=== PATIENT | female | born 1960 | race Two or more races ===

== ENCOUNTER 2024-05-02 10:59 | Outpatient (CLI) | payer OTHER | END 2024-05-02 11:11 | disposition home or self-care (01) | LOC: EDBD 10:59 → MRI 10:59 | DX: M25.561 Pain in right knee (principal) | CPT/HCPCS: 73721 ==

== ENCOUNTER 2024-05-04 07:20 | Outpatient (CLI) | payer OTHER | END 2024-05-04 07:21 | disposition home or self-care (01) | LOC: MRI 07:20 | DX: D18.03 Hemangioma of intra-abdominal structures (principal) | CPT/HCPCS: 74183; Q9965 ==

== ENCOUNTER 2024-08-10 13:20 | Outpatient (CLI) | payer OTHER | END 2024-08-10 13:33 | disposition home or self-care (01) | LOC: MAMO-SONO 13:20 | DX: N64.9 Disorder of breast, unspecified (principal); J20.9 Acute bronchitis, unspecified; R07.9 Chest pain, unspecified; E04.2 Nontoxic multinodular goiter ==

== ENCOUNTER 2024-09-06 08:12 | Outpatient (CLI) | payer OTHER | END 2024-09-06 08:14 | disposition home or self-care (01) | LOC: RAD 08:12 | PROVIDERS: ATTEND Orthopaedic Surgery | DX: R93.6 Abnormal findings on diagnostic imaging of limbs (principal); M25.561 Pain in right knee; M25.562 Pain in left knee ==

== ENCOUNTER 2024-11-15 07:12 | Outpatient (CLI) | payer OTHER | END 2024-11-15 07:15 | disposition home or self-care (01) | LOC: RAD 07:12 | PROVIDERS: ATTEND Orthopaedic Surgery | DX: M79.641 Pain in right hand (principal) ==